=== PATIENT | female | born 1940 | race Caucasian/White ===

== ENCOUNTER 2017-03-28 11:42 | Inpatient (IN) | payer MEDICARE, OTHER ==
[~2017-03-28] VITALS: Ht 160 cm; Wt 77.4 kg
[2017-03-28] MEDS ORDERED: CALC600T60 PO (12:15)
[2017-03-28] MEDS ORDERED: MULT1TAB10 PO (12:15)
[2017-03-28] MEDS ORDERED: MELO15TA4 PO (12:15)
[2017-03-28] MEDS ORDERED: CVS20TAB PO (12:15)
[2017-03-28] MEDS ORDERED: ASPI1TAB PO (12:15)
[2017-03-28] MEDS ORDERED: FISH100049 PO (12:15)
[2017-03-28] MEDS ORDERED: FOSA70TA PO (12:15)
[2017-03-28] MEDS ORDERED: LISI-538 PO (12:15)
[2017-03-28] MEDS ORDERED: OXYC1TAB23 PO (12:15)
[2017-03-28] MEDS ORDERED: CRES5TAB PO (12:15)
[2017-03-28] MEDS ORDERED: GABA-283 PO (12:15)
[2017-03-28] MEDS ORDERED: COQ-150C PO (12:15)
[2017-03-28] MEDS ORDERED: METF500T13 PO (12:15)
[2017-03-28] MEDS ORDERED: VITA200016 PO (12:15)
[2017-03-28] MEDS ORDERED: PROBCAP4 PO (12:15)
[2017-03-28] MEDS ORDERED: KETOROLAC 30 MG/ML VIAL (J1885) IV ONE (13:45)
[2017-03-28] MEDS ORDERED: METOCLOPRAMIDE INJ 10MG/2ML VIAL (J2765) IV ONE (13:45)
[2017-03-28 14:14] LABS: BASO # 0.1 K/mm3 (0.0-0.2); BASO % 2.9 % (0.0-1.0); EOS # 0.1 K/mm3 (0.0-0.50); EOS % 1.3 % (0.0-3.0); LARGE UNSTAINED CELL # 0.1 K/mm3 (0.0-0.4); LARGE UNSTAINED CELL % 2.3 % (0.0-4.0); LYMPH # 0.6 K/mm3 (1.5-4.5); LYMPH % 13.3 % (24.0-44.0); MEAN CORPUSCULAR HEMOGLOBIN 32.7 pg (27.0-33.0); MEAN CORPUSCULAR HGB CONC 34.8 g/dl (32.0-36.5); MONO # 0.2 K/mm3 (0.0-0.8); MONO % 3.8 % (0.0-5.0); NEUTROPHILS # 3.5 K/mm3 (1.8-7.7); NEUTROPHILS % 76.5 % (36.0-66.0); PLATELET COUNT, AUTOMATED 197 k/mm3 (150-450); RED CELL DISTRIBUTION WIDTH 12.4 % (11.5-14.5); WHITE BLOOD COUNT 4.6 K/mm3 (4.0-10.0)
--- NOTE | 2017-03-28 14:36 | REP ---
CT BRAIN WITHOUT CONTRAST: 03/28/2017 CLINICAL HISTORY: CVA symptoms. No prior study. Soft tissue and bone windows for each slice level are provided. Ventricles are midline, symmetric and their size proportionate to the mild diffuse cerebral atrophy. Third and fourth ventricles midline and mildly prominent. Basal ganglia are symmetric. There is heterogeneous low attenuation in the white matter tracts bilaterally suggesting small vessel white matter ischemic disease. No acute infarct, hemorrhage, mass or mass effect. No extra-axial hemorrhage. Cortical atrophy is noted. The brainstem is unremarkable. Cerebellum shows mild atrophy. No posterior fossa hemorrhage. Mastoids sinuses, skull base and calvarium all unremarkable. IMPRESSION: 1. There is evidence for cerebral atrophy and chronic small vessel white matter ischemic changes. Proportionate ventriculomegaly but no acute infarct, hemorrhage, mass or mass effect. 2. Posterior fossa atrophy of the cerebellum without any acute finding. No other finding. Signed by Marcelino Quintana MD 03/28/2017 07:40 P
[2017-03-28 14:38] LABS: ANION GAP 7 MEQ/L (8-16); BLOOD UREA NITROGEN 23 MG/DL (7-18); CARBON DIOXIDE LEVEL 28 MEQ/L (21-32); CHLORIDE LEVEL 100 MEQ/L (98-107); GLOMERULAR FILTRATION RATE > 60.0 (>39); GLUCOSE, FASTING 123 MG/DL (83-110); SODIUM LEVEL 135 MEQ/L (136-145)
--- NOTE | 2017-03-28 14:39 | REP ---
SEATED AP PORTABLE CHEST: 03/28/2017 CLINICAL HISTORY: CVA. FINDINGS: Lungs only marginally adequate with the degree of inflation. There is no effusion, infiltrate or mass. Heart not enlarged for this degree of inflation. The aorta is mildly tortuous but without aneurysm. Airway intact. No mediastinal or hilar mass. Bones show some degenerative changes in the spine. There appear to be pedicle screws in the upper lumbar region at the inferior margin of the field of view. Ribs, clavicles and visualize shoulders intact. IMPRESSION: 1. No cardiomegaly, edema, effusion or acute infiltrate. 2. A tortuous aorta without aneurysm. Airway intact. 3. Some degenerative changes in the spine. Signed by Marcelino Quintana MD 03/28/2017 07:41 P
[2017-03-28] MEDS ORDERED: NS 1,000 ML IV ONE (15:00)
--- NOTE | 2017-03-28 16:17 | ECGEPIP ---
Stationary ECG Study [facility] - ED Test Date: 2017-03-28 Pat Name: JESUS PATTON Department: Room: - Gender: F Eeo Officer: sherry : 1940 Requested By: Dinesh Gaming Order Number: [id number] Reading MD: Dinesh Mancia Measurements Intervals [place] Rate: 73 P: 34 MO: 175 QRS: -28 QRSD: 87 T: 33 QT: 375 QTc: 415 Interpretive Statements SINUS RHYTHM BORDERLINE LEFT AXIS DEVIATION SEPTAL/LATERAL ST ELEVATION, CONSIDER ISCHEMIA NO PRIORS Electronically Signed On 03-28-2017 16:17:05 EDT by Dinesh Mancia
[2017-03-28] MEDS ORDERED: metFORMIN (GLUCOPHAGE) 500 MG TAB PO SCH (18:00)
[2017-03-28] MEDS ORDERED: OMEP20CA3 PO (18:29)
[2017-03-28] MEDS ORDERED: ONDANSETRON 4MG/2ML VIAL (J2405) IV PRN (18:30)
[2017-03-28] MEDS ORDERED: GLUCOSE 4 GM CHEW TABLET PO PRN (18:30)
[2017-03-28] MEDS ORDERED: ACETAMINOPHEN TAB 650MG DOSE (2X325MG) PO PRN (18:30)
[2017-03-28] MEDS ORDERED: GLUCAGON FOR INJ 1 MG VIAL (J1610) SC PRN (18:30)
[2017-03-28] MEDS ORDERED: BISACODYL 5 MG TAB PO PRN (18:30)
[2017-03-28] MEDS ORDERED: DEXTROSE 50% 50 ML SYRINGE IV PRN (18:30)
[2017-03-28] MEDS ORDERED: PERCOCET 5MG/325MG TAB PO ONE (19:15)
[2017-03-28 19:30] LABS: ERYTHROCYTE SEDIMENTATION RATE 39 mm/hr (0-30)
[2017-03-28] MEDS ORDERED: PERCOCET 5MG/325MG TAB PO PRN (19:45)
[2017-03-28] MEDS ORDERED: KETOROLAC TROMETHAMINE 10 MG TAB PO PRN (19:45)
[2017-03-28 20:05] VITALS: BP 129/71
[2017-03-28] MEDS: HumaLOG INSULIN (NovoLOG) PER UNIT SC SCH (21:00)
[2017-03-28] MEDS ORDERED: ROSUVASTATIN 10 MG TAB (CRESTOR) PO SCH (21:00)
[2017-03-28] MEDS: GABAPENTIN 300 MG CAP PO SCH (21:05)
[2017-03-28] MEDS: ASPIRIN ENTERIC 325 MG TAB PO SCH (21:20)
[2017-03-29] VITALS (7 sets, daily range): BP systolic 118–134; BP diastolic 57–75
[2017-03-29 03:24] LABS: BASO % 0.5 % (0.0-1.0); EOS # 0.1 K/mm3 (0.0-0.50); EOS % 1.7 % (0.0-3.0); LARGE UNSTAINED CELL # 0.1 K/mm3 (0.0-0.4); LARGE UNSTAINED CELL % 2.8 % (0.0-4.0); LYMPH # 0.7 K/mm3 (1.5-4.5); LYMPH % 13.2 % (24.0-44.0); MEAN CORPUSCULAR HEMOGLOBIN 31.4 pg (27.0-33.0); MEAN CORPUSCULAR HGB CONC 33.7 g/dl (32.0-36.5); MEAN CORPUSCULAR VOLUME 93.3 fl (80.0-96.0); MONO # 0.3 K/mm3 (0.0-0.8); MONO % 5.9 % (0.0-5.0); NEUTROPHILS # 3.5 K/mm3 (1.8-7.7); NEUTROPHILS % 75.9 % (36.0-66.0); PLATELET COUNT, AUTOMATED 172 k/mm3 (150-450); RED CELL DISTRIBUTION WIDTH 12.5 % (11.5-14.5); WHITE BLOOD COUNT 4.6 K/mm3 (4.0-10.0)
[2017-03-29 03:37] LABS: ALBUMIN 2.7 GM/DL (3.2-5.2); ALBUMIN/GLOBULIN RATIO 0.82 (1.00-1.93); ALKALINE PHOSPHATASE 179 U/L (45-117); ALT/SGPT 153 U/L (12-78); ANION GAP 8 MEQ/L (8-16); AST/SGOT 107 U/L (15-37); BILIRUBIN,TOTAL 0.4 MG/DL (0.2-1.0); BLOOD UREA NITROGEN 24 MG/DL (7-18); CALCIUM LEVEL 8.2 MG/DL (8.8-10.2); CARBON DIOXIDE LEVEL 23 MEQ/L (21-32); CHLORIDE LEVEL 102 MEQ/L (98-107); CREATININE FOR GFR 0.87 MG/DL (0.55-1.02); GLOMERULAR FILTRATION RATE > 60.0 (>39); GLUCOSE, FASTING 130 MG/DL (83-110); MAGNESIUM LEVEL 1.8 MG/DL (1.8-2.4); POTASSIUM SERUM 4.1 MEQ/L (3.5-5.1); SODIUM LEVEL 133 MEQ/L (136-145)
[2017-03-29] MEDS ORDERED: PERCOCET 5MG/325MG TAB PO SCH (09:00)
[2017-03-29] MEDS: HumaLOG INSULIN (NovoLOG) PER UNIT SC SCH ×4 (09:22→20:19)
[2017-03-29] MEDS: VITAMIN D 1,000 INTERNATIONAL UNITS TABLET PO SCH (10:36)
[2017-03-29] MEDS: LACTOBACILLUS ACIDOPHILUS CAP (BACID) PO SCH (10:36)
[2017-03-29] MEDS: LISINOPRIL 20 MG TAB PO SCH (10:36)
[2017-03-29] MEDS: GABAPENTIN 300 MG CAP PO SCH ×2 (10:37→20:04)
[2017-03-29] MEDS: OMEPRAZOLE 20 MG CAP PO SCH (10:37)
[2017-03-29] MEDS: MULTIVITAMINS/MINERALS THERAP 1 TAB PO SCH (10:37)
[2017-03-29] MEDS: OMEGA-3 1050MG CAPSULE PO SCH (10:37)
[2017-03-29] MEDS: ASPIRIN ENTERIC 325 MG TAB PO SCH (10:37)
[2017-03-29] MEDS: ENOXAPARIN 40 MG/0.4 ML SYRINGE (J1650) SC SCH (10:38)
--- NOTE | 2017-03-29 12:11 | REP ---
MRI BRAIN WITHOUT CONTRAST: 03/28/2017. Clinical history: Headaches, greater than 5 days, right diplopia. Comparison: Head CT today. Techniques: Axial T1, T2, FLAIR, gradient-echo, diffusion-weighted images and ADC mapping sequences with a sagittal T1 sequence also provided. Findings: The ventricles are midline, symmetric and their size proportionate to the mild diffuse cerebral atrophy. There is no midline shift. Third and fourth ventricles were not dilated. Basal ganglia were symmetric and grossly normal. Some periventricular, subcortical and deep white matter hyperintense T2 and FLAIR foci are seen in each hemisphere more these are posterior in the parietooccipital region and along the atria of the lateral ventricles. Subcortical lesions in the right frontal and left temporal lobes are also seen as white matter findings. There is only mild cortical atrophy, age appropriate. There is no vascular territory infarct, hemorrhage, mass or mass effect. Cerebral peduncles are normal. The right-sided at the junction of the leigh and medulla some ill-defined T2 signal change. I cannot confirm a restricted water diffusion here, this may be old gliosis. The cerebellum shows mild atrophy and is symmetric basal cisterns are intact. The seventh/eighth cranial nerve complexes and the mastoid aeration were symmetric and normal. There is deviation if the nasal septum towards the right. Maxillary, frontal, ethmoid and sphenoid sinuses are clear. Orbits and contents show the globes, optic nerves and extraocular muscles unremarkable. Gradient echo images show no evidence of intracranial hemorrhage. Diffusion weighted images and the ADC mapping sequences show no acute ischemia or restricted water diffusion. Corpus callosum, optic chiasm and pituitary were normal. There is no cerebellar tonsillar ectopia. Ample subarachnoid space at the craniocervical junction. Impression: 1. Some periventricular, deep central and subcortical white matter hyperintense T2 and FLAIR foci noted, bilateral distribution and consistent with the small vessel ischemic change. No vascular territory infarct, hemorrhage, mass, mass effect or edema. 2. The diffusion weighted images and ADC mapping sequences show no restricted water diffusion or acute ischemia. 3. Lateral, third and fourth ventricles size normal for age and proportionate to the very mild atrophy. 4. Corpus callosum, optic chiasm, pituitary and other midline structures intact.5. Globes and intraorbital contents grossly intact on this study. Signed by Marcelino Quintana MD 03/29/2017 09:34 A
--- NOTE | 2017-03-29 12:15 | REP ---
MR angiography the brain without contrast: History: Diplopia. Blurry vision. Headaches. Technique: 3-D [id number] MR angiography of the brain is acquired in the usual fashion and maximal intensity projection images were generated in rotational format about the vertical and horizontal axes. In addition, source axial T1-weighted images are viewed in cine mode. MR angiographic findings: The distal vertebral arteries are patent and co-dominant. Basilar artery is a little tortuous but widely patent. The posterior cerebral and superior cerebellar vessels are normal and symmetric. The distal internal carotid arteries are unremarkable. Anterior and middle cerebral arteries appear intact. There is no visible alonzo aneurysm or arteriovenous malformation. Impression: Unremarkable MR angiography the brain. Signed by Donald Bui MD 03/29/2017 10:36 A
--- NOTE | 2017-03-29 12:15 | REP ---
MR angiography of the carotids without contrast: History: Diplopia, blurred vision. Technique: 2-D [id number] MR angiography of the carotid arteries is acquired. Maximum intensity projection images are generated and displayed rotationally. Source axial images are reviewed. MR angiographic findings: The common carotid arteries are unremarkable bilaterally. The vertebral arteries are normal and symmetric. The carotid bifurcations are somewhat high, left more so than right. The internal carotid arteries are tortuous bilaterally. No significant stenosis is seen on either side. Impression: No high-grade carotid stenosis seen on either side. Unremarkable vertebral arteries. Signed by Donald Bui MD 03/29/2017 01:18 P
[2017-03-29] MEDS: traMADol 50 MG TAB PO PRN ×2 (12:59→19:38)
--- NOTE | 2017-03-29 13:14 | HPE ---
DATE OF ADMISSION: 03/28/2017 PRIMARY CARE PHYSICIAN: Dr. Jonathan Cherry, in [place]. CHIEF COMPLAINT: Diplopia on the right eye as well as right frontal headache with nausea. HISTORY OF PRESENT ILLNESS: Ms. Quintanilla is a 77-year-old female with a past medical history of diabetes, who presented to the emergency room (ER) due to experiencing diplopia, as well as a right frontal headache and blurry vision. Patient is from [place] and she was in [place] in her summer home when, on Wednesday night, she developed a headache, mostly located in the right frontal. Patient expressed that in the morning when she woke up, she developed blurry vision in the right eye and headache continues. Patient expressed that the pain was 7-8/10 stationary and does not increase with chewing food or claudication of the jaw. She explains this episode two times. One was 20 years ago, and the other one was 10 years ago. All three episodes were the same, with a headache, blurry vision and diplopia on the right eye. Patient has been seen by neurologist and progress developer, for the past two episodes, which, according to her, they could not find anything and they were talking about the possibility of transient ischemic attack (TIA). Patient denies fever, chills or night sweats. Patient also expressed that she experienced mild nausea; however, patient denies vomiting. Patient denies seizure-type activity, syncope, or near-syncope. Patient expressed that she feels mild lightheadedness when she stands up; however, patient was helped by her and her daughter during ambulation and she does not have history of falls. ALLERGIES: LEVOFLOXACIN, MORPHINE. HOME MEDICATIONS: - Fosamax 70 mg by mouth weekly on Saturdays - aspirin 81 mg - calcium 600 mg by mouth daily - CoEnzyme-Q10 200 mg by mouth daily - fish oil one capsule by mouth daily - gabapentin 300 mg by mouth twice a day - probiotic one capsule by mouth daily - lisinopril 20 mg by mouth daily - metformin 500 mg by mouth twice a day - multivitamin 1 tablet by mouth daily - omeprazole 20 mg by mouth daily - oxycodone/acetaminophen 5/325 mg one tablet by mouth daily - Crestor 5 mg by mouth every two days - vitamin D 2000 units by mouth daily SOCIAL HISTORY: Patient lives with her in [place]. Patient expressed that when she was in her 20s, she smoked cigarettes for eight years, one pack a day. Patient expressed that she drinks wine occasionally. Patient, in summer, visits [place] and has a summer house there. Patient has two children who are healthy. FAMILY HISTORY: Patient's father and mother due to old age. Patient has a half brother who is healthy. Patient also has a stepbrother, and they are both alive. REVIEW OF SYSTEMS: GENERAL: Patient denies fever, chills, night sweats, weight loss, weight gain. HEENT: Patient had one episode of lightheadedness when she sat up from a sitting position. Patient has headache, mostly on the frontal and around the right eye. Patient also has blurry vision and diplopia on the right eye; however, patient denies lacrimation or rhinorrhea. Patient also denies sinusitis or problems with chewing food. NECK: Patient denies lumps, bumps or decreased range of motion of her neck. HEART: The patient denies palpitations, racing or skipping heartbeat, or chest pain. LUNGS: Patient denies shortness of breath, coughing. ABDOMEN: The patient denies abdominal pain; however, patient experienced mild nausea, no vomiting. No melena, hematochezia, hemoptysis. NEUROLOGIC: The patient denies history of transient ischemic attack (TIA), cerebrovascular accident (CVA); however, patient was informed by her physician for possibility of TIA for the previous two episodes. PHYSICAL EXAMINATION: VITAL SIGNS: Temperature 97.4, pulse 80, respiratory 18, blood pressure 117/64, pulse oximetry 97% on room air. GENERAL APPEARANCE: Patient was lying in bed, in no acute distress. Patient was awake, alert and oriented to time, place and person. HEENT: Normocephalic, atraumatic. Pupils are equal and reactive to light. Oral mucosa is moist. Patient's recent activity examination indicated 20/30 on the right and 20/25 on the left. Patient has diplopia with uncovering both visions. Patient wears glasses. LUNGS: Clear breath sounds bilaterally. Good air movement. HEART: Regular rate and rhythm. Normal S1, S2. ABDOMEN: Soft, nontender. Positive bowel sounds in all quadrants. EXTREMITIES: No lower extremity edema. Plus 2 pulses in both lower extremities. Patient has normal range of motion in both upper and lower extremities. NEUROLOGICAL: Cranial nerves II-XI intact. No focal deficiencies. [id number]-ww-[id number] test maneuver was negative. Rapid alternating movement of the hands was negative. LABORATORY DATA: White blood cells 4.6, red blood cells 3.92, hemoglobin 12.8, hematocrit 36.9, MCV 94, MCH 32.7, MCHC 34.8, RDW 12.4, platelet count 197. Neutrophil percentage 76.5, lymphocyte percentage 13.3, monocyte percentage 3.8, eosinophile percentage 1.3, basophil percentage 2.9, leukocyte percentage 2.3. Sodium 135, potassium 4, chloride 100, carbon dioxide 28, anion gap 7, BUN 23, creatinine 0.9, glomerular filtration rate more than 60, fasting glucose 123. Estimated plasma glucose 148. Hemoglobin A1c 6.8. Calcium 9.0. Total creatinine 86. CK-MB 2. CK-MB relative index 2.32. Troponin-I less than 0.02. IMAGING TECHNIQUE: CT of the head shows there is evidence of cerebral atrophy and chronic small vessel white matter ischemic changes. Proportionate ventriculomegaly, but no acute infarction, hemorrhage, mass or mass effect. Posterior fossa atrophy of the cerebellum without any acute finding. No other finding was observed. Chest x-ray shows no cardiomegaly, edema, effusion or acute infarction. A tortuous aorta without aneurysm. Airway intact. Some degenerative changes in the spine. ASSESSMENT AND PLAN: 1. Right eye diplopia/blurry vision/headache. this could be secondary to TIA versus complex migraine versus alternative explanations versus ophthalmological disorder. We have ordered an MRI/MRA of the brain and carotid. The results are pending at this time. Due to possibility of stoke/transient ischemic attack (TIA). Patient has not been diagnosed with migraine; however, it is possible that patient has been experiencing complex migraine. We have consulted Dr. Arevalo. Also, due to the possibility of abnormal eye pathology, we have consulted Dr. Arauz. Patient is on aspirin 81 mg daily; however, based on recommendation from neurologist, we have increased it to 325. Also, patient is on Crestor. For controlling headache, we will continue patient on Percocet every 6 hours as needed for pain. Also, we will start patient on Toradol 10 mg by mouth every 8 hours as needed for pain. Also, we have ordered an erythrocyte sedimentation rate. Results are pending at this time. 2. Diabetes. At home, patient is on metformin 500 mg by mouth twice a day; however, we are holding this medication and we are starting this patient on a sliding scale and consistent carbohydrate diet. 3. Chronic back pain. Patient is on Percocet one tablet by mouth daily at home ; however, we have held this medication due to the headache. We have increased it to every 8 hours as needed for pain. Patient is also on Toradol as needed. 4. Vitamin D deficiency. Patient is on vitamin D 2000 units by mouth daily. 5. Deep venous thrombosis (DVT) prophylaxis. Patient is on Lovenox 40 mg daily. 6. Hyperlipidemia. Patient is on Crestor 5 mg by mouth every 48 hours. My preceptor for this patient encounter was Dr. Leesa Zavala. The preceptor was physically present in the building during the encounter and was fully available as needed. All aspects of the patient interview, examination, medical decision-making process, and medical care plan development were reviewed and approved by the preceptor. The preceptor is aware and concurs with the plan as stated in the body of this note and will attest to such by his/her co-signature. I have both independently examined this patient as well as reviewed the note. I have discussed in detail with the resident the findings and plan of treatment as documented in the residents note. I will continue to follow the patient and offer further guidance to the patients care as necessary during this hospital stay. Leesa CLEANING
--- NOTE | 2017-03-29 17:49 | IPN ---
DATE: 03/29/2017 The patient seen and examined. Continued to have mild right-sided headache with diplopia when looking towards the right. Reported arm numbness has resolved. Denies any chest pain, pressure or discomfort. Had one episode of elevated temperature 100.4. No further elevations during the day today. Denies any neck stiffness, trouble breathing, coughing, urinary complaint, abdominal pain, nausea or vomiting. VITAL SIGNS: Temperature 98.1, pulse 78, respirations 18, blood pressure 121/72, pulse oximetry 97% on room air. LABORATORY: WBC 4.6, hemoglobin and hematocrit 10.8/32.1, platelets 172. Chemistry: Sodium 133, potassium 4.1, chloride 102, bicarbonate 23, BUN 24, creatinine 0.87. Cardiac enzymes negative times three. Blood culture negative to date. MRA of the brain within normal limits. MRA of the carotids. No high grade carotid stenosis. MRI of the brain. Some periventricular deep central and subcortical white matter hyperintensity bilateral distribution consistent with small vessel ischemic changes. No restricted water diffusion or acute ischemia changes. PHYSICAL EXAMINATION: GENERAL: The patient alert and oriented times three. No acute distress. HEENT: Normocephalic, atraumatic. PULMONARY: Bilateral clear to auscultation. CARDIAC: Regular rate and rhythm. Normal S1, S2. Telemetry within normal limits. ABDOMEN: Soft, nontender EXTREMITIES: No edema bilateral lower extremities. NEUROLOGICAL: Reported blurry vision and diplopia on the right eye. Left eye seems to be okay. Reported numbness of left lip. Cranial nerves II through XII seems to be grossly intact. Upper and lower extremity strength bilateral 5 out of 5. Symmetric reflexes bilateral. Edema bilateral lower extremities. ASSESSMENT AND PLAN: This is a 77-year-old female patient with underlying medical history of diabetes, with diabetic neuropathy, with history of diplopia 10 years ago that has resolved. Came from [place]. Presented with episode of diplopia and right-sided headache with left-sided upper extremity and lower extremity numbness. PROBLEM LIST: 1. Right eye diplopia. Blurred vision. Possible TIA versus complex migraine versus alternative explanations versus ophthalmological disorder. MRI/MRA of the brain, MRA of the carotids. Telemetry monitoring. Echocardiogram. Neurology has been consulted. Aspirin dose has been increased to 325. Water Resource Manager has also been consulted. Continue statin. Pain medication is ordered. 2. Diabetes. Holding oral metformin. Insulin as per scale. 3. Chronic back pain. Continue pain medication as ordered. 4. Vitamin D deficiency. Continue current medication. 5. Dyslipidemia. Continue statin. 6. Hypertension. Continue current medication. 7. Deep venous thrombosis (DVT) prophylaxis. Lovenox subcutaneous. DISPOSITION PLANNING: Pending ophthalmology and neurology consultation. Echocardiogram. The patient remains symptomatic, which was concerning.
--- NOTE | 2017-03-29 18:34 | IPNPDOC ---
Text Note Date of Service The patient was seen on 03/29/17. NOTE d/w Dr Arauz, concern for giant cell arteritis, event though ESR <50. rec get CRP, if elevated rec consider temporal artery biopsy, imperially started prednisone. VS,Fishbone, I+O VS, Fishbone, I+O Laboratory Tests 03/29/17 02:59 Red Blood Count 3.45 L, Mean Corpuscular Volume 93.3, Mean Corpuscular Hemoglobin 31.4, Mean Corpuscular Hemoglobin Concent 33.7, Red Cell Distribution Width 12.5, Neutrophils (%) (Auto) 75.9 H, Lymphocytes (%) (Auto) 13.2 L, Monocytes (%) (Auto) 5.9 H, Eosinophils (%) (Auto) 1.7, Basophils (%) ( Auto) 0.5, Neutrophils # (Auto) 3.5, Lymphocytes # (Auto) 0.7 L, Monocytes # ( Auto) 0.3, Eosinophils # (Auto) 0.1, Basophils # (Auto) 0.0, Calcium Level 8.2 L , Aspartate Amino Transf (AST/SGOT) 107 H, Alanine Aminotransferase (ALT/SGPT) 153 H, Total Creatine Kinase 205 #H, Alkaline Phosphatase 179 H, Total Bilirubin 0.4, Total Protein 6.0 L, Albumin 2.7 L Vital Signs Date Time Temp Pulse Resp B/P (MAP) Pulse Ox O2 Delivery O2 Flow Rate FiO2 03/29/17 16:00 98.1 78 18 121/72 (88) 97 Room Air I&O- Last 24 Hours up to 6 AM 03/29/17 06:00 Intake Total 1000 ml Output Total 300 ml Balance 700 ml LORETTA GEORGE MD Mar 29, 2017 18:34
[2017-03-29] MEDS: predniSONE 20 MG TAB PO SCH (18:47)
[2017-03-29] MEDS ORDERED: NORTRIPTYLINE 10 MG CAP PO SCH (21:00)
[2017-03-30] VITALS (9 sets, daily range): BP systolic 113–145; BP diastolic 55–73
[2017-03-30 05:59] LABS: BASO % 0.7 % (0.0-1.0); EOS % 0.3 % (0.0-3.0); LARGE UNSTAINED CELL # 0.2 K/mm3 (0.0-0.4); LARGE UNSTAINED CELL % 4.6 % (0.0-4.0); LYMPH # 0.9 K/mm3 (1.5-4.5); LYMPH % 21.3 % (24.0-44.0); MEAN CORPUSCULAR HEMOGLOBIN 32.5 pg (27.0-33.0); MEAN CORPUSCULAR HGB CONC 34.5 g/dl (32.0-36.5); MEAN CORPUSCULAR VOLUME 94.2 fl (80.0-96.0); MONO # 0.1 K/mm3 (0.0-0.8); MONO % 2.8 % (0.0-5.0); NEUTROPHILS # 2.5 K/mm3 (1.8-7.7); NEUTROPHILS % 70.3 % (36.0-66.0); PLATELET COUNT, AUTOMATED 205 k/mm3 (150-450); RED CELL DISTRIBUTION WIDTH 12.5 % (11.5-14.5); WHITE BLOOD COUNT 3.5 K/mm3 (4.0-10.0)
[2017-03-30 06:22] LABS: ALBUMIN 2.9 GM/DL (3.2-5.2); ALBUMIN/GLOBULIN RATIO 0.85 (1.00-1.93); ALKALINE PHOSPHATASE 371 U/L (45-117); ALT/SGPT 244 U/L (12-78); ANION GAP 3 MEQ/L (8-16); AST/SGOT 142 U/L (15-37); BILIRUBIN,TOTAL 0.4 MG/DL (0.2-1.0); BLOOD UREA NITROGEN 17 MG/DL (7-18); CALCIUM LEVEL 8.8 MG/DL (8.8-10.2); CARBON DIOXIDE LEVEL 29 MEQ/L (21-32); CHLORIDE LEVEL 103 MEQ/L (98-107); CREATININE FOR GFR 0.67 MG/DL (0.55-1.02); GLOMERULAR FILTRATION RATE > 60.0 (>39); GLUCOSE, FASTING 211 MG/DL (83-110); MAGNESIUM LEVEL 2.1 MG/DL (1.8-2.4); POTASSIUM SERUM 4.7 MEQ/L (3.5-5.1); SODIUM LEVEL 135 MEQ/L (136-145); TOTAL PROTEIN 6.3 GM/DL (6.4-8.2)
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
[2017-03-30] MEDS: HumaLOG INSULIN (NovoLOG) PER UNIT SC SCH ×4 (07:30→20:53)
[2017-03-30] MEDS ORDERED: methylPREDNISolone INJ 125 MG/2 ML VIAL (J2930) IV SCH (09:00)
--- NOTE | 2017-03-30 09:26 | REP ---
RIGHT UPPER QUADRANT SONOGRAPHY: HISTORY: Elevated liver function studies. FINDINGS: Scanning through right upper quadrant of the abdomen demonstrates mural thickening in the gallbladder wall with some pericholecystic fluid. Gallbladder wall measures up to 5.5 mm in thickness. No stone or polyp is seen within the lumen of the gallbladder however. The common bile duct is normal measuring 0.4 cm in greatest diameter. No focal hepatic lesion is seen. The tail of the pancreas is obscured by abdominal gas. No pancreatic abnormality is seen. There is no evidence of ascites. No right renal abnormality is observed. The right kidney measures 10.8 x 5.0 x 4.8 cm. IMPRESSION: Gallbladder wall thickening with some pericholecystic fluid. No stone or polyp. Otherwise unremarkable right upper quadrant sonography. Signed by Donald Bui MD 03/30/2017 12:17 P
[2017-03-30] MEDS ORDERED: BUPIVACAINE HCL 0.25% 30 ML VIAL As Ordered ONE (10:42)
[2017-03-30] MEDS ORDERED: LIDOCAINE 1% SDV INJ 30 ML VIAL As Ordered ONE (10:42)
[2017-03-30] MEDS ORDERED: PROPOFOL 200 MG/20 ML VIAL As Ordered ONE (13:34)
[2017-03-30] MEDS: predniSONE 20 MG TAB PO SCH (13:34)
[2017-03-30] MEDS ORDERED: LIDOCAINE 2% INJ 100 MG/5 ML SDV (FOR ANES.) As Ordered ONE (13:34)
[2017-03-30] MEDS ORDERED: LR 1,000 ML IV SCH (14:00)
[2017-03-30] MEDS: LACTOBACILLUS ACIDOPHILUS CAP (BACID) PO SCH (14:35)
[2017-03-30] MEDS: VITAMIN D 1,000 INTERNATIONAL UNITS TABLET PO SCH (14:35)
[2017-03-30] MEDS: OMEGA-3 1050MG CAPSULE PO SCH (14:36)
[2017-03-30] MEDS: GABAPENTIN 300 MG CAP PO SCH ×2 (14:39→20:42)
[2017-03-30] MEDS: MULTIVITAMINS/MINERALS THERAP 1 TAB PO SCH (14:39)
[2017-03-30] MEDS: OMEPRAZOLE 20 MG CAP PO SCH (14:40)
[2017-03-30] MEDS: traMADol 50 MG TAB PO PRN (14:40)
[2017-03-30] MEDS: ASPIRIN ENTERIC 325 MG TAB PO SCH (14:41)
[2017-03-30] MEDS: LISINOPRIL 20 MG TAB PO SCH (14:41)
--- NOTE | 2017-03-30 16:06 | IPNPDOC ---
Text Note Date of Service The patient was seen on 03/30/17. NOTE Subjective: WU improving. Blurred vision/diplopia much improved. Objective: Vitals: (see below) General: No acute distress, laying comfortably in bed. HEENT: Moist mucous membranes. Neck: No JVD or lymphadenopathy Cardiac: RRR, No murmurs Pulm: Clear to auscultation b/l. No wheezing, rhonchi Abd: NT/ND + BS Ext: No edema or cyanosis Neuro: Strength 5/5 BUE and BLE. CN 2-12 intact. Visual guzman intact. F to N intact Negative pronator drift. Labs (see below) Images: Abd u/s 03/30/17 FINDINGS: Scanning through right upper quadrant of the abdomen demonstrates mural thickening in the gallbladder wall with some pericholecystic fluid. Gallbladder wall measures up to 5.5 mm in thickness. No stone or polyp is seen within the lumen of the gallbladder however. The common bile duct is normal measuring 0.4 cm in greatest diameter. No focal hepatic lesion is seen. The tail of the pancreas is obscured by abdominal gas. No pancreatic abnormality is seen. There is no evidence of ascites. No right renal abnormality is observed. The right kidney measures 10.8 x 5.0 x 4.8 cm. IMPRESSION: Gallbladder wall thickening with some pericholecystic fluid. No stone or polyp. Otherwise unremarkable right upper quadrant sonography. MRA Brain 03/29/17 Impression: Unremarkable MR angiography the brain. MRI Brain 03/29/17 Impression: 1. Some periventricular, deep central and subcortical white matter hyperintense T2 and FLAIR foci noted, bilateral distribution and consistent with the small vessel ischemic change. No vascular territory infarct, hemorrhage, mass, mass effect or edema. 2. The diffusion weighted images and ADC mapping sequences show no restricted water diffusion or acute ischemia. 3. Lateral, third and fourth ventricles size normal for age and proportionate to the very mild atrophy. 4. Corpus callosum, optic chiasm, pituitary and other midline structures intact. 5. Globes and intraorbital contents grossly intact on this study. Carotid MRI 03/29/17 Impression: No high-grade carotid stenosis seen on either side. Unremarkable vertebral arteries. CXR 03/30/17 IMPRESSION: 1. No cardiomegaly, edema, effusion or acute infiltrate. 2. A tortuous aorta without aneurysm. Airway intact. 3. Some degenerative changes in the spine. Assessment/Plan 1. 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 Burdick. Started on Solu-Medrol 250 mg daily for 3 days per neuro, and will switch to prednisone shortly thereafter. No neuro deficits. Blurred/double Vision improving. Evaluated by neurology and ophthalmology. ESR elevated. If biopsy is negative, questionable whether this is related to complex migraine versus ophthalmologic disorder. Will need outpatient neurology as well as ophthalmology follow-up. 2.? TIA- on aspirin. Statin has been held at this time given transaminitis. On Fish oil. Echocardiogram. MRI/MRA brain negative. Carotid MRI negative. 3. Transaminitis- hepatitis panel sent. Abdominal ultrasound (see above). Spoke with Dr. Burdick - unlikely related to the gallbladder, and given no abd pain/negative rolon's sign, unlikely cholecystitis. Statin has been d/c. Will need LFTs repeated outpt with close f/u. 4. Hypertension- controlled continue home meds 5. Diabetes mellitus- metformin on hold. Sliding scale insulin. 6. Chronic back pain- continue home meds 7. Vitamin D deficiency- continue home meds DVT prophy: Lovenox subcutaneous VS,Fishbone, I+O VS, Fishbone, I+O Laboratory Tests 03/30/17 05:19 Red Blood Count 3.52 L, Mean Corpuscular Volume 94.2, Mean Corpuscular Hemoglobin 32.5, Mean Corpuscular Hemoglobin Concent 34.5, Red Cell Distribution Width 12.5, Neutrophils (%) (Auto) 70.3 H, Lymphocytes (%) (Auto) 21.3 L, Monocytes (%) (Auto) 2.8, Eosinophils (%) (Auto) 0.3, Basophils (%) ( Auto) 0.7, Neutrophils # (Auto) 2.5, Lymphocytes # (Auto) 0.9 L, Monocytes # ( Auto) 0.1, Eosinophils # (Auto) 0.0, Basophils # (Auto) 0.0, Calcium Level 8.8, Aspartate Amino Transf (AST/SGOT) 142 H, Alanine Aminotransferase (ALT/SGPT) 244 H, Alkaline Phosphatase 371 H, Total Bilirubin 0.4, Total Protein 6.3 L, Albumin 2.9 L Vital Signs Date Time Temp Pulse Resp B/P (MAP) Pulse Ox O2 Delivery O2 Flow Rate FiO2 03/30/17 14:45 98.5 88 20 136/70 (92) 95 Room Air I&O- Last 24 Hours up to 6 AM 03/30/17 06:00 Intake Total 1730 ml Output Total 2475 ml Balance -745 ml CONCEPCIÓN VILLATORO MD Mar 30, 2017 16:06
[2017-03-30] MEDS: NORTRIPTYLINE 25 MG CAP PO SCH (20:42)
[2017-03-31] VITALS (7 sets, daily range): BP systolic 110–140; BP diastolic 60–82
[2017-03-31 05:10] LABS: BASO % 0.6 % (0.0-1.0); EOS % 0.1 % (0.0-3.0); LARGE UNSTAINED CELL # 0.4 K/mm3 (0.0-0.4); LARGE UNSTAINED CELL % 5.7 % (0.0-4.0); LYMPH # 1.7 K/mm3 (1.5-4.5); LYMPH % 21.2 % (24.0-44.0); MEAN CORPUSCULAR HEMOGLOBIN 31.7 pg (27.0-33.0); MEAN CORPUSCULAR HGB CONC 33.7 g/dl (32.0-36.5); MEAN CORPUSCULAR VOLUME 94.2 fl (80.0-96.0); MONO # 0.3 K/mm3 (0.0-0.8); MONO % 4.3 % (0.0-5.0); NEUTROPHILS # 4.3 K/mm3 (1.8-7.7); NEUTROPHILS % 68.2 % (36.0-66.0); PLATELET COUNT, AUTOMATED 236 k/mm3 (150-450); RED CELL DISTRIBUTION WIDTH 12.7 % (11.5-14.5); WHITE BLOOD COUNT 6.2 K/mm3 (4.0-10.0)
[2017-03-31 05:36] LABS: ALBUMIN 2.7 GM/DL (3.2-5.2); ALBUMIN/GLOBULIN RATIO 0.77 (1.00-1.93); ALKALINE PHOSPHATASE 297 U/L (45-117); ALT/SGPT 225 U/L (12-78); ANION GAP 7 MEQ/L (8-16); AST/SGOT 93 U/L (15-37); BILIRUBIN,TOTAL 0.2 MG/DL (0.2-1.0); BLOOD UREA NITROGEN 21 MG/DL (7-18); CALCIUM LEVEL 8.8 MG/DL (8.8-10.2); CARBON DIOXIDE LEVEL 27 MEQ/L (21-32); CHLORIDE LEVEL 104 MEQ/L (98-107); CREATININE FOR GFR 0.74 MG/DL (0.55-1.02); GLOMERULAR FILTRATION RATE > 60.0 (>39); GLUCOSE, FASTING 203 MG/DL (83-110); POTASSIUM SERUM 4.4 MEQ/L (3.5-5.1); SODIUM LEVEL 138 MEQ/L (136-145); TOTAL PROTEIN 6.2 GM/DL (6.4-8.2)
[2017-03-31] MEDS: MULTIVITAMINS/MINERALS THERAP 1 TAB PO SCH (08:28)
[2017-03-31] MEDS: OMEPRAZOLE 20 MG CAP PO SCH (08:28)
[2017-03-31] MEDS: VITAMIN D 1,000 INTERNATIONAL UNITS TABLET PO SCH (08:28)
[2017-03-31] MEDS: ASPIRIN ENTERIC 325 MG TAB PO SCH (08:28)
[2017-03-31] MEDS: OMEGA-3 1050MG CAPSULE PO SCH (08:28)
[2017-03-31] MEDS: GABAPENTIN 300 MG CAP PO SCH ×2 (08:28→20:48)
[2017-03-31] MEDS: LACTOBACILLUS ACIDOPHILUS CAP (BACID) PO SCH (08:28)
[2017-03-31] MEDS: methylPREDNISolone INJ 125 MG/2 ML VIAL (J2930) IV SCH (08:28)
[2017-03-31] MEDS: HumaLOG INSULIN (NovoLOG) PER UNIT SC SCH ×4 (08:29→20:48)
[2017-03-31] MEDS: ENOXAPARIN 40 MG/0.4 ML SYRINGE (J1650) SC SCH (08:30)
[2017-03-31] MEDS: LISINOPRIL 20 MG TAB PO SCH (08:37)
[2017-03-31] MEDS ORDERED: LEVEMIR (INSULIN DETEMIR) 1 UNITS/0.01ML SC SCH (09:00)
[2017-03-31 10:06] LABS: ERYTHROCYTE SEDIMENTATION RATE 45 mm/hr (0-30)
[2017-03-31] MEDS: traMADol 50 MG TAB PO PRN (12:48)
--- NOTE | 2017-03-31 13:40 | IPNPDOC ---
Text Note Date of Service The patient was seen on 03/31/17. NOTE Subjective: Pt denies CP/SOB/palpitations. No blurred/double vision. Objective: Vitals: (see below) General: No acute distress, laying comfortably in bed. HEENT: Moist mucous membranes. Neck: No JVD or lymphadenopathy Cardiac: RRR, No murmurs Pulm: Clear to auscultation b/l. No wheezing, rhonchi Abd: NT/ND + BS Ext: No edema or cyanosis Neuro: Strength 5/5 BUE and BLE. CN 2-12 intact. Visual guzman intact. F to N intact Negative pronator drift. Labs (see below) Images: Abd u/s 03/30/17 FINDINGS: Scanning through right upper quadrant of the abdomen demonstrates mural thickening in the gallbladder wall with some pericholecystic fluid. Gallbladder wall measures up to 5.5 mm in thickness. No stone or polyp is seen within the lumen of the gallbladder however. The common bile duct is normal measuring 0.4 cm in greatest diameter. No focal hepatic lesion is seen. The tail of the pancreas is obscured by abdominal gas. No pancreatic abnormality is seen. There is no evidence of ascites. No right renal abnormality is observed. The right kidney measures 10.8 x 5.0 x 4.8 cm. IMPRESSION: Gallbladder wall thickening with some pericholecystic fluid. No stone or polyp. Otherwise unremarkable right upper quadrant sonography. MRA Brain 03/29/17 Impression: Unremarkable MR angiography the brain. MRI Brain 03/29/17 Impression: 1. Some periventricular, deep central and subcortical white matter hyperintense T2 and FLAIR foci noted, bilateral distribution and consistent with the small vessel ischemic change. No vascular territory infarct, hemorrhage, mass, mass effect or edema. 2. The diffusion weighted images and ADC mapping sequences show no restricted water diffusion or acute ischemia. 3. Lateral, third and fourth ventricles size normal for age and proportionate to the very mild atrophy. 4. Corpus callosum, optic chiasm, pituitary and other midline structures intact. 5. Globes and intraorbital contents grossly intact on this study. Carotid MRI 03/29/17 Impression: No high-grade carotid stenosis seen on either side. Unremarkable vertebral arteries. CXR 03/30/17 IMPRESSION: 1. No cardiomegaly, edema, effusion or acute infiltrate. 2. A tortuous aorta without aneurysm. Airway intact. 3. Some degenerative changes in the spine. Assessment/Plan 1. 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 Burdick. Started on Solu-Medrol 250 mg daily for 3 days per neuro, and will switch to prednisone shortly thereafter. No neuro deficits. Blurred/double Vision improving. Evaluated by neurology and ophthalmology. ESR elevated. If biopsy is negative, questionable whether this is related to complex migraine versus ophthalmologic disorder. Will need outpatient neurology as well as ophthalmology follow-up. 2.? TIA- on aspirin. Statin has been held at this time given transaminitis. On Fish oil. Echocardiogram. MRI/MRA brain negative. Carotid MRI negative. 3. Transaminitis- Improved. hepatitis panel sent. Abdominal ultrasound (see above). Spoke with Dr. Burdick - unlikely related to the gallbladder, and given no abd pain/negative rolon's sign, unlikely cholecystitis. Statin has been d/c. Will need LFTs repeated outpt with close f/u. 4. Hypertension- controlled continue home meds 5. Diabetes mellitus- metformin on hold. Sliding scale insulin. 6. Chronic back pain- continue home meds 7. Vitamin D deficiency- continue home meds DVT prophy: Lovenox subcutaneous VS,Fishbone, I+O VS, Fishbone, I+O Laboratory Tests 03/31/17 04:52 Red Blood Count 3.48 L, Mean Corpuscular Volume 94.2, Mean Corpuscular Hemoglobin 31.7, Mean Corpuscular Hemoglobin Concent 33.7, Red Cell Distribution Width 12.7, Neutrophils (%) (Auto) 68.2 H, Lymphocytes (%) (Auto) 21.2 L, Monocytes (%) (Auto) 4.3, Eosinophils (%) (Auto) 0.1, Basophils (%) ( Auto) 0.6, Neutrophils # (Auto) 4.3, Lymphocytes # (Auto) 1.7, Monocytes # (Auto ) 0.3, Eosinophils # (Auto) 0.0, Basophils # (Auto) 0.0, Calcium Level 8.8, Aspartate Amino Transf (AST/SGOT) 93 H, Alanine Aminotransferase (ALT/SGPT) 225 H, Alkaline Phosphatase 297 H, Total Bilirubin 0.2, Total Protein 6.2 L, Albumin 2.7 L Vital Signs Date Time Temp Pulse Resp B/P (MAP) Pulse Ox O2 Delivery O2 Flow Rate FiO2 03/31/17 13:18 20 03/31/17 11:56 98.8 69 130/82 (98) 96 Room Air I&O- Last 24 Hours up to 6 AM 03/31/17 06:00 Intake Total 2035 ml Output Total 1430 ml Balance 605 ml CONCEPCIÓN VILLATORO MD Mar 31, 2017 13:40
[2017-03-31] MEDS: NORTRIPTYLINE 25 MG CAP PO SCH (20:48)
[2017-04-01 06:00] VITALS: BP 133/70
[2017-04-01 06:34] LABS: ALBUMIN 2.7 GM/DL (3.2-5.2); ALKALINE PHOSPHATASE 248 U/L (45-117); ALT/SGPT 200 U/L (12-78); ANION GAP 8 MEQ/L (8-16); AST/SGOT 53 U/L (15-37); BILIRUBIN,TOTAL 0.2 MG/DL (0.2-1.0); BLOOD UREA NITROGEN 24 MG/DL (7-18); CARBON DIOXIDE LEVEL 27 MEQ/L (21-32); CHLORIDE LEVEL 104 MEQ/L (98-107); CREATININE FOR GFR 0.82 MG/DL (0.55-1.02); GLOMERULAR FILTRATION RATE > 60.0 (>39); GLUCOSE, FASTING 135 MG/DL (83-110); MAGNESIUM LEVEL 1.8 MG/DL (1.8-2.4); POTASSIUM SERUM 4.3 MEQ/L (3.5-5.1); SODIUM LEVEL 139 MEQ/L (136-145); TOTAL PROTEIN 5.7 GM/DL (6.4-8.2)
[2017-04-01 06:43] LABS: ERYTHROCYTE SEDIMENTATION RATE 30 mm/hr (0-30)
[2017-04-01 06:45] LABS: BASO % 0.4 % (0.0-1.0); EOS % 0.1 % (0.0-3.0); LARGE UNSTAINED CELL # 0.2 K/mm3 (0.0-0.4); LARGE UNSTAINED CELL % 2.7 % (0.0-4.0); LYMPH # 1.4 K/mm3 (1.5-4.5); LYMPH % 22.1 % (24.0-44.0); MEAN CORPUSCULAR HEMOGLOBIN 32.1 pg (27.0-33.0); MEAN CORPUSCULAR HGB CONC 34.5 g/dl (32.0-36.5); MEAN CORPUSCULAR VOLUME 93.2 fl (80.0-96.0); MONO # 0.2 K/mm3 (0.0-0.8); MONO % 2.8 % (0.0-5.0); NEUTROPHILS # 4.5 K/mm3 (1.8-7.7); NEUTROPHILS % 71.8 % (36.0-66.0); PLATELET COUNT, AUTOMATED 185 k/mm3 (150-450); RED CELL DISTRIBUTION WIDTH 12.3 % (11.5-14.5); WHITE BLOOD COUNT 6.3 K/mm3 (4.0-10.0)
[2017-04-01] MEDS: OMEGA-3 1050MG CAPSULE PO SCH (08:22)
[2017-04-01] MEDS: GABAPENTIN 300 MG CAP PO SCH ×2 (08:22→21:00)
[2017-04-01] MEDS: VITAMIN D 1,000 INTERNATIONAL UNITS TABLET PO SCH (08:23)
[2017-04-01] MEDS: traMADol 50 MG TAB PO PRN (08:23)
[2017-04-01] MEDS: LACTOBACILLUS ACIDOPHILUS CAP (BACID) PO SCH (08:24)
[2017-04-01] MEDS: OMEPRAZOLE 20 MG CAP PO SCH (08:24)
[2017-04-01] MEDS: MULTIVITAMINS/MINERALS THERAP 1 TAB PO SCH (08:24)
[2017-04-01] MEDS: LISINOPRIL 20 MG TAB PO SCH (08:24)
[2017-04-01] MEDS: methylPREDNISolone INJ 125 MG/2 ML VIAL (J2930) IV SCH (08:25)
[2017-04-01] MEDS: HumaLOG INSULIN (NovoLOG) PER UNIT SC SCH ×4 (08:28→21:00)
[2017-04-01] MEDS: ENOXAPARIN 40 MG/0.4 ML SYRINGE (J1650) SC SCH (08:31)
[2017-04-01] MEDS: ASPIRIN ENTERIC 325 MG TAB PO SCH (08:43)
[2017-04-01] MEDS: LEVEMIR (INSULIN DETEMIR) 1 UNITS/0.01ML SC SCH (08:44)
[2017-04-01 14:00] VITALS: BP 126/61
--- NOTE | 2017-04-01 14:01 | IPNPDOC ---
Text Note Date of Service The patient was seen on 04/01/17. NOTE Subjective: Pt denies any acute changes overnight. No blurred/double vision. Objective: Vitals: (see below) General: No acute distress, laying comfortably in bed. HEENT: Moist mucous membranes. Neck: No JVD or lymphadenopathy Cardiac: RRR, No murmurs Pulm: Clear to auscultation b/l. No wheezing, rhonchi Abd: NT/ND + BS Ext: No edema or cyanosis Neuro: Strength 5/5 BUE and BLE. CN 2-12 intact. Visual guzman intact. F to N intact Negative pronator drift. Labs (see below) Images: Abd u/s 03/30/17 FINDINGS: Scanning through right upper quadrant of the abdomen demonstrates mural thickening in the gallbladder wall with some pericholecystic fluid. Gallbladder wall measures up to 5.5 mm in thickness. No stone or polyp is seen within the lumen of the gallbladder however. The common bile duct is normal measuring 0.4 cm in greatest diameter. No focal hepatic lesion is seen. The tail of the pancreas is obscured by abdominal gas. No pancreatic abnormality is seen. There is no evidence of ascites. No right renal abnormality is observed. The right kidney measures 10.8 x 5.0 x 4.8 cm. IMPRESSION: Gallbladder wall thickening with some pericholecystic fluid. No stone or polyp. Otherwise unremarkable right upper quadrant sonography. MRA Brain 03/29/17 Impression: Unremarkable MR angiography the brain. MRI Brain 03/29/17 Impression: 1. Some periventricular, deep central and subcortical white matter hyperintense T2 and FLAIR foci noted, bilateral distribution and consistent with the small vessel ischemic change. No vascular territory infarct, hemorrhage, mass, mass effect or edema. 2. The diffusion weighted images and ADC mapping sequences show no restricted water diffusion or acute ischemia. 3. Lateral, third and fourth ventricles size normal for age and proportionate to the very mild atrophy. 4. Corpus callosum, optic chiasm, pituitary and other midline structures intact. 5. Globes and intraorbital contents grossly intact on this study. Carotid MRI 03/29/17 Impression: No high-grade carotid stenosis seen on either side. Unremarkable vertebral arteries. CXR 03/30/17 IMPRESSION: 1. No cardiomegaly, edema, effusion or acute infiltrate. 2. A tortuous aorta without aneurysm. Airway intact. 3. Some degenerative changes in the spine. Assessment/Plan 1. 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 Burdick. Started on Solu-Medrol 250 mg daily for 3 days per neuro, and will switch to prednisone shortly thereafter. No neuro deficits. Blurred/double Vision improving. Evaluated by neurology and ophthalmology. ESR elevated. If biopsy is negative, questionable whether this is related to complex migraine versus ophthalmologic disorder. Will need outpatient neurology as well as ophthalmology follow-up. Spoke with Dr. Roe, will d/c tomorrow with prednisone taper from 60mg [id number], with outpt neuro f/u. 2.? TIA- on aspirin. Statin has been held at this time given transaminitis. On Fish oil. Echocardiogram. MRI/MRA brain negative. Carotid MRI negative. 3. Transaminitis- Improved. hepatitis panel sent. Abdominal ultrasound (see above). Spoke with Dr. Burdick - unlikely related to the gallbladder, and given no abd pain/negative rolon's sign, unlikely cholecystitis. Statin has been d/c. Will need LFTs repeated outpt with close f/u. 4. Hypertension- controlled continue home meds 5. Diabetes mellitus- metformin on hold. Sliding scale insulin. Levemir started. Will send home on PO agent with outpt PCP f/u. 6. Chronic back pain- continue home meds 7. Vitamin D deficiency- continue home meds DVT prophy: Lovenox subcutaneous Will help pt obtain PCP in this region as she is going back to [place] and has no PCP there. She will also be f/u with Dr. Roe in the office. VS,Fishbone, I+O VS, Fishbone, I+O Laboratory Tests 04/01/17 05:01 Red Blood Count 5.02, Mean Corpuscular Volume 93.2, Mean Corpuscular Hemoglobin 32.1, Mean Corpuscular Hemoglobin Concent 34.5, Red Cell Distribution Width 12.3 , Neutrophils (%) (Auto) 71.8 H, Lymphocytes (%) (Auto) 22.1 L, Monocytes (%) ( Auto) 2.8, Eosinophils (%) (Auto) 0.1, Basophils (%) (Auto) 0.4, Neutrophils # ( Auto) 4.5, Lymphocytes # (Auto) 1.4 L, Monocytes # (Auto) 0.2, Eosinophils # ( Auto) 0.0, Basophils # (Auto) 0.0, Calcium Level 9.0, Aspartate Amino Transf ( AST/SGOT) 53 H, Alanine Aminotransferase (ALT/SGPT) 200 H, Alkaline Phosphatase 248 H, Total Bilirubin 0.2, Total Protein 5.7 L, Albumin 2.7 L Vital Signs Date Time Temp Pulse Resp B/P (MAP) Pulse Ox O2 Delivery O2 Flow Rate FiO2 04/01/17 09:54 14 04/01/17 08:24 133/70 04/01/17 06:00 96.9 67 97 Room Air I&O- Last 24 Hours up to 6 AM 04/01/17 06:00 Intake Total 1280 ml Output Total 1400 ml Balance -120 ml CONCEPCIÓN VILLATORO MD Apr 01, 2017 14:01
[2017-04-01] MEDS: NORTRIPTYLINE 25 MG CAP PO SCH (21:00)
[2017-04-01 22:00] VITALS: BP 117/83
[2017-04-02 06:00] VITALS: BP 148/70
[2017-04-02 06:11] LABS: BASO % 0.2 % (0.0-1.0); EOS % 0.2 % (0.0-3.0); LARGE UNSTAINED CELL # 0.1 K/mm3 (0.0-0.4); LARGE UNSTAINED CELL % 1.1 % (0.0-4.0); LYMPH # 1.5 K/mm3 (1.5-4.5); LYMPH % 16.9 % (24.0-44.0); MEAN CORPUSCULAR HEMOGLOBIN 31.2 pg (27.0-33.0); MEAN CORPUSCULAR HGB CONC 33.4 g/dl (32.0-36.5); MEAN CORPUSCULAR VOLUME 93.5 fl (80.0-96.0); MONO # 0.3 K/mm3 (0.0-0.8); MONO % 3.6 % (0.0-5.0); NEUTROPHILS # 6.5 K/mm3 (1.8-7.7); PLATELET COUNT, AUTOMATED 338 k/mm3 (150-450); RED CELL DISTRIBUTION WIDTH 12.7 % (11.5-14.5); WHITE BLOOD COUNT 8.4 K/mm3 (4.0-10.0)
[2017-04-02 07:09] LABS: ERYTHROCYTE SEDIMENTATION RATE 38 mm/hr (0-30)
[2017-04-02 07:43] LABS: ALBUMIN 2.6 GM/DL (3.2-5.2); ALBUMIN/GLOBULIN RATIO 0.74 (1.00-1.93); ALKALINE PHOSPHATASE 218 U/L (45-117); ALT/SGPT 203 U/L (12-78); ANION GAP 7 MEQ/L (8-16); AST/SGOT 46 U/L (15-37); BILIRUBIN,TOTAL 0.2 MG/DL (0.2-1.0); BLOOD UREA NITROGEN 23 MG/DL (7-18); CARBON DIOXIDE LEVEL 28 MEQ/L (21-32); CHLORIDE LEVEL 104 MEQ/L (98-107); CREATININE FOR GFR 0.79 MG/DL (0.55-1.02); GLOMERULAR FILTRATION RATE > 60.0 (>39); GLUCOSE, FASTING 164 MG/DL (83-110); MAGNESIUM LEVEL 1.8 MG/DL (1.8-2.4); POTASSIUM SERUM 3.8 MEQ/L (3.5-5.1); SODIUM LEVEL 139 MEQ/L (136-145); TOTAL PROTEIN 6.1 GM/DL (6.4-8.2)
[2017-04-02] MEDS: ENOXAPARIN 40 MG/0.4 ML SYRINGE (J1650) SC SCH (08:15)
[2017-04-02 08:16] VITALS: BP 148/70
[2017-04-02] MEDS: MULTIVITAMINS/MINERALS THERAP 1 TAB PO SCH (08:16)
[2017-04-02] MEDS: OMEGA-3 1050MG CAPSULE PO SCH (08:16)
[2017-04-02] MEDS: OMEPRAZOLE 20 MG CAP PO SCH (08:16)
[2017-04-02] MEDS: GABAPENTIN 300 MG CAP PO SCH (08:16)
[2017-04-02] MEDS: LISINOPRIL 20 MG TAB PO SCH (08:16)
[2017-04-02] MEDS: LACTOBACILLUS ACIDOPHILUS CAP (BACID) PO SCH (08:16)
[2017-04-02] MEDS: HumaLOG INSULIN (NovoLOG) PER UNIT SC SCH (08:16)
[2017-04-02] MEDS: VITAMIN D 1,000 INTERNATIONAL UNITS TABLET PO SCH (08:16)
[2017-04-02] MEDS: methylPREDNISolone INJ 125 MG/2 ML VIAL (J2930) IV SCH (08:17)
[2017-04-02] MEDS: LEVEMIR (INSULIN DETEMIR) 1 UNITS/0.01ML SC SCH (08:18)
[2017-04-02] MEDS: ASPIRIN ENTERIC 325 MG TAB PO SCH (08:19)
[2017-04-02] MEDS ORDERED: GLIM2TAB PO ×2 (09:02→10:14)
[2017-04-02] MEDS ORDERED: METF850T4 PO (09:02)
[2017-04-02] MEDS ORDERED: PRED20TA PO (09:02)
[2017-04-02] MEDS ORDERED: NORT25CA2 PO (09:02)
[2017-04-02] MEDS ORDERED: D-CA1KIT XX (09:57)
[2017-04-02] MEDS ORDERED: PRED10TA2 PO (10:13)
--- NOTE | 2017-04-02 15:30 | DS.PDOC ---
Discharge Summary General Date of Admission Mar 28, 2017 at 18:19 Date of Discharge 04/02/17 Attending Physician: CONCEPCIÓN VILLATORO MD Specialist/Consultants Involve: MONET ROE MD Specialist/Consultants Involve Dr. Burdick, Dr. Arauz Discharge Summary PROCEDURES PERFORMED DURING STAY: Temporal artery biopsy ADMITTING/DISCHARGE DIAGNOSES: 1. TIA versus complex migraine 2. ? Temporal arteritis, biopsy negative 3. Transaminitis 4. Hypertension 5. Diabetes mellitus 6. Chronic lower back pain 7. Vitamin D deficiency COMPLICATIONS/CHIEF COMPLAINT: Transient Ischemic Attack. HISTORY OF PRESENT ILLNESS/HOSPITAL COURSE: . This is a 77 past history diabetes, hypertension who presents complaining of right-sided temporal headache with associated blurred vision and double vision. Patient was evaluated by neurology as well as ophthalmology with concern for temporal arteritis. Dr. Burdick was consulted and patient had a temporal artery biopsy. In the meantime patient was placed on high-dose steroids which he completed 3 days of, and transitioned to prednisone by mouth. Today, the temporal artery biopsy was noted to be negative for giant cell arteritis. I did speak with Dr. Roe who recommends given a short taper of steroids 30 mg 2 days then 20 mg x 2 days, 10 mg 2 days and stop. In the meantime and start the patient on higher dose of metformin and started glimepiride given her elevated blood sugars from the steroids. Patient is to record her blood sugars twice a day and presents of these readings her primary care physician when she follows up in 1 -2 weeks. Patient will also follow-up with Dr. Roe in one to two weeks as well. Patient will be discharged on nortriptyline for her headaches. Will need further workup with Dr. Roe to determine cause of her WU/blurred vision as temporal arteries can present in a similar fashion with initial biopsy negative. This was explained to the patient. Patient's blurred and double vision has completely resolved. DISCHARGE MEDICATIONS: Please see below. ALLERGIES: Please see below. PHYSICAL EXAMINATION ON DISCHARGE: VITAL SIGNS: Please see below. General: No acute distress, laying comfortably in bed. HEENT: Moist mucous membranes. Neck: No JVD or lymphadenopathy Cardiac: RRR, No murmurs Pulm: Clear to auscultation b/l. No wheezing, rhonchi Abd: NT/ND + BS Ext: No edema or cyanosis Neuro: Strength 5/5 BUE and BLE. CN 2-12 intact. Visual ugzman intact. F to N intact Negative pronator drift. LABORATORY DATA: Please see below. IMAGING: Abd u/s 03/30/17 FINDINGS: Scanning through right upper quadrant of the abdomen demonstrates mural thickening in the gallbladder wall with some pericholecystic fluid. Gallbladder wall measures up to 5.5 mm in thickness. No stone or polyp is seen within the lumen of the gallbladder however. The common bile duct is normal measuring 0.4 cm in greatest diameter. No focal hepatic lesion is seen. The tail of the pancreas is obscured by abdominal gas. No pancreatic abnormality is seen. There is no evidence of ascites. No right renal abnormality is observed. The right kidney measures 10.8 x 5.0 x 4.8 cm. IMPRESSION: Gallbladder wall thickening with some pericholecystic fluid. No stone or polyp. Otherwise unremarkable right upper quadrant sonography. MRA Brain 03/29/17 Impression: Unremarkable MR angiography the brain. MRI Brain 03/29/17 Impression: 1. Some periventricular, deep central and subcortical white matter hyperintense T2 and FLAIR foci noted, bilateral distribution and consistent with the small vessel ischemic change. No vascular territory infarct, hemorrhage, mass, mass effect or edema. 2. The diffusion weighted images and ADC mapping sequences show no restricted water diffusion or acute ischemia. 3. Lateral, third and fourth ventricles size normal for age and proportionate to the very mild atrophy. 4. Corpus callosum, optic chiasm, pituitary and other midline structures intact. 5. Globes and intraorbital contents grossly intact on this study. Carotid MRI 03/29/17 Impression: No high-grade carotid stenosis seen on either side. Unremarkable vertebral arteries. CXR 03/30/17 IMPRESSION: 1. No cardiomegaly, edema, effusion or acute infiltrate. 2. A tortuous aorta without aneurysm. Airway intact. 3. Some degenerative changes in the spine. PROGNOSIS: Fair ACTIVITY: As tolerated. DIET: As tolerated DISCHARGE PLAN/DISPOSITION: 01 Home, Self-Care. DISCHARGE INSTRUCTIONS: 1. Follow-up with PCP in 1-2 weeks. Follow up with Dr. Roe in 2 weeks. Follow up with ophthalmology. 2 weeks. DISCHARGE CONDITION: Stable. TIME SPENT ON DISCHARGE: Greater than 30 minutes. Vital Signs/I&Os Vital Signs Date Time Temp Pulse Resp B/P (MAP) Pulse Ox O2 Delivery O2 Flow Rate FiO2 04/02/17 08:16 148/70 04/02/17 06:00 98.6 67 20 97 Room Air I&O- Last 24 Hours up to 6 AM 04/02/17 06:00 Intake Total 900 ml Output Total 1800 ml Balance -900 ml Laboratory Data Labs 24H Laboratory Tests 2 04/01/17 17:21: Bedside Glucose (Misc Panel) 341H 04/01/17 20:41: Bedside Glucose (Misc Panel) 322H 04/02/17 05:35: White Blood Count 8.4, Red Blood Count 3.40L, Hemoglobin 10.6#L, Hematocrit 31.8L, Mean Corpuscular Volume 93.5, Mean Corpuscular Hemoglobin 31.2, Mean Corpuscular Hemoglobin Concent 33.4, Red Cell Distribution Width 12.7, Platelet Count 338, Neutrophils (%) (Auto) 78.0H, Lymphocytes (%) (Auto) 16.9L, Monocytes (%) (Auto) 3.6, Eosinophils (%) (Auto) 0.2, Basophils (%) (Auto) 0.2, Neutrophils # (Auto) 6.5, Lymphocytes # (Auto) 1.5, Monocytes # (Auto) 0.3, Eosinophils # (Auto) 0.0, Basophils # (Auto) 0.0, Large Unclassified Cells % 1.1 , Large Unclassified Cells # 0.1, Erythrocyte Sedimentation Rate 38H, Anion Gap 7L, Glomerular Filtration Rate > 60.0, Blood Urea Nitrogen 23H, Creatinine 0.79 , Sodium Level 139, Potassium Level 3.8, Chloride Level 104, Carbon Dioxide Level 28, Calcium Level 9.0, Aspartate Amino Transf (AST/SGOT) 46H, Alanine Aminotransferase (ALT/SGPT) 203H, Alkaline Phosphatase 218H, Total Bilirubin 0.2 , Total Protein 6.1L, Albumin 2.6L, Magnesium Level 1.8, C-Reactive Protein, Quantitative 1.79H, Albumin/Globulin Ratio 0.74L 04/02/17 11:33: Bedside Glucose (Misc Panel) 172H CBC/BMP Laboratory Tests 04/02/17 05:35 Red Blood Count 3.40 L, Mean Corpuscular Volume 93.5, Mean Corpuscular Hemoglobin 31.2, Mean Corpuscular Hemoglobin Concent 33.4, Red Cell Distribution Width 12.7, Neutrophils (%) (Auto) 78.0 H, Lymphocytes (%) (Auto) 16.9 L, Monocytes (%) (Auto) 3.6, Eosinophils (%) (Auto) 0.2, Basophils (%) ( Auto) 0.2, Neutrophils # (Auto) 6.5, Lymphocytes # (Auto) 1.5, Monocytes # (Auto ) 0.3, Eosinophils # (Auto) 0.0, Basophils # (Auto) 0.0, Calcium Level 9.0, Aspartate Amino Transf (AST/SGOT) 46 H, Alanine Aminotransferase (ALT/SGPT) 203 H, Alkaline Phosphatase 218 H, Total Bilirubin 0.2, Total Protein 6.1 L, Albumin 2.6 L FSBS Laboratory Tests Test 04/01/17 17:21 04/01/17 20:41 04/02/17 11:33 Range/Units Bedside Glucose (Misc Panel) 341 322 172 83-110 MG/DL Microbiology Microbiology 03/29/17 Blood Culture - Preliminary, Resulted No Growth after 72 hours. All specime... 03/29/17 Blood Culture - Preliminary, Resulted No Growth after 72 hours. All specime... Discharge Medications Scheduled Alendronate Sodium (Fosamax) 70 Mg Tab, 70 MG PO QWEEK, (Reported) SATURDAYS Aspirin (Aspirin 81) 81 Mg Tab, 81 MG PO DAILY, (Reported) Calcium Carbonate (Calcium) 600 Mg Tab, 600 MG PO DAILY, (Reported) Coenzyme Q10 (Coq-10) 150 Mg Cap, 200 MG PO DAILY, (Reported) Fish Oil (Fish Oil 1000 mg) 1 Cap Cap, 1 CAP PO DAILY, (Reported) Gabapentin (Gabapentin) 400 Mg Cap, 300 MG PO BID, (Reported) Glimepiride (Glimepiride) 2 Mg Tab, 2 MG PO DAILY Lactobacillus Acidophilus (Probiotic) 1 Cap Cap, 1 CAP PO DAILY, (Reported) Lisinopril (Lisinopril) 20 Mg Tab, 20 MG PO DAILY, (Reported) Metformin Hydrochloride (Metformin HCl) 850 Mg Tab, 850 MG PO BID Multivitamins (Multivitamin Adults) 1 Tab Tab, 1 TAB PO DAILY, (Reported) Nortriptyline HCl (Nortriptyline HCl) 25 Mg Cap, 25 MG PO QHS Omeprazole (Omeprazole) 20 Mg Cap, 20 MG PO DAILY, (Reported) Oxycodone/Acetaminophen (Oxycodone/Acetaminophen 5-325 mg) 1 Tab Tab, 1 TAB PO DAILY, (Reported) Prednisone (Prednisone) 10 Mg Tab, 10 MG PO TAPER Take 3 tabs daily x 2 days, then 2 tabs daily x 2 days, then 1 tabs daily x 2 days, then stop Rosuvastatin Calcium (Crestor) 5 Mg Tab, 5 MG PO Q2D, (Reported) Vitamin D (Vitamin D) 2,000 Unit Cap, 2,000 UNIT PO DAILY, (Reported) Allergies Coded Allergies: Levofloxacin (Verified Allergy, Unknown, 03/28/17) Morphine (Verified Allergy, Unknown, 03/28/17) CONCEPCIÓN VILLATORO MD Apr 02, 2017 15:30
--- NOTE | 2017-04-20 23:38 | RO ---
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 PROCEDURE: Right temporal artery biopsy. SURGEON: Dr. Colten Burdick LCAC RADAR OPERATOR/NAVIGATOR: ANESTHESIA: Local lidocaine. DESCRIPTION OF PROCEDURE: Brief procedure summary: The patient was brought to the operating room and preoperatively the artery was identified using ultrasound Doppler, and this was marked out on the skin. The skin area was prepped and draped in the usual sterile fashion. Local lidocaine was infiltrated over the area and a skin incision was made. A combination of blunt and sharp dissection was used to dissect down to the artery and, indeed, there was a relatively quick bifurcation of the artery that went more anteriorly than expected, but was exactly where the Doppler suggested it would be. A smaller branch off this posteriorly, which was usually the dominant artery, was relatively minuscule. In any case, both of these arteries were dissected, and the small artery was decided to abandon and follow the larger artery with a combination of blunt and sharp dissection as well as some minimal electrocautery in the subcutaneous tissue. Once the vessel was dissected out free, clips were placed proximally and distally on the artery. It was resected and sent to pathology. The subcutaneous tissue was brought together with #3-0 Vicryl, #3-0 Vicryl was used to approximate the dermis and #4-0 Vicryl subcuticular was used to approximate the skin. Steri-Strips and a dry sterile dressing was applied. The patient was awakened from her sedation and brought to the recovery room, awake, alert and hemodynamically stable. Sponge and needle counts correct times two.
== END 2017-04-02 12:08 | disposition home or self-care (01) | DRG 41 ==
LOC: M ED 14:46 → M ED INP 18:19 → M PCU 19:56 → M MSPAV 03-31 23:59
PROVIDERS: ADMIT Hospitalist; ATTEND Hospitalist
PROC: 03BS0ZX Excision of Right Temporal Artery, Open Approach, Diagnostic (ICD-10-PCS; principal; 2017-03-30 16:00)
DX: G43.109 Migraine with aura, not intractable, without status migrainosus (principal); G45.9 Transient cerebral ischemic attack, unspecified; H53.2 Diplopia; E11.9 Type 2 diabetes mellitus without complications; E78.5 Hyperlipidemia, unspecified; I10 Essential (primary) hypertension; M54.9 Dorsalgia, unspecified; E55.9 Vitamin D deficiency, unspecified; Z79.82 Long term (current) use of aspirin; Z79.84 Long term (current) use of oral hypoglycemic drugs; Z79.899 Other long term (current) drug therapy; Z88.1 Allergy status to other antibiotic agents; Z88.5 Allergy status to narcotic agent; Z87.891 Personal history of nicotine dependence

== ENCOUNTER → 2024-05-09 | Outpatient (CLI) | payer MEDICARE ==
[~2024-05-09] MED LIST: ALEN70TA87 PO; ASPI81TA26 PO; CALC600T60 PO; COQ-150C PO; CRES5TAB PO; D-CA1KIT XX; FISH100049 PO; GABA-284 PO; GLIM2TAB4 PO; LISI20TA33 PO; MELO15TA28 PO; METF500T13 PO; METF850T4 PO; MULT1TAB10 PO; NORT25CA2 PO; OMEP1CAP73 PO; OMEP20TA2 PO; OXYC1TAB23 PO; PRED10TA2 PO; PRED20TA PO; PROBCAP4 PO; VITA200016 PO
== END ==
LOC: M PLAIMG 10:07
PROVIDERS: ATTEND Physician Assistant
DX: M25.561 Pain in right knee (principal); M17.11 Unilateral primary osteoarthritis, right knee; M85.861 Other specified disorders of bone density and structure, right lower leg